=== PATIENT | male | born 1990 | race American Indian/Alaskan Native ===

== ENCOUNTER 2017-08-25 18:02 | Emergency (ER) | payer OTHER | END 2017-08-25 18:15 | disposition home or self-care (01) | LOC: ED 18:02 | DX: H16.133 Photokeratitis, bilateral (principal) | CPT/HCPCS: 99281 ==

== ENCOUNTER 2022-12-14 11:32 | Emergency (ER) | payer OTHER ==
[~2022-12-14] VITALS: Ht 177.8 cm; Wt 115.2 kg
[2022-12-14 11:35] VITALS: BP 135/75; TEMP 97.3
== END 2022-12-14 13:48 | disposition home or self-care (01) ==
LOC: ED 11:32
DX: N34.2 Other urethritis (principal); A60.01 Herpesviral infection of penis
CPT/HCPCS: 81000; 87490; 87590; 87651; 96372; 99283; J0696